=== PATIENT | female | born 1985 | race Caucasian/White ===

== ENCOUNTER 2021-01-11 09:36 | Inpatient (IN) | payer OTHER ==
[2021-01-11] MEDS ORDERED: NALOXONE 0.4 MG/ML 1 ML VIAL IVP STA (09:42)
[2021-01-11 10:15] LABS: Basophils % (A) 0 %; Eosinophils # (A) 0.1 k/uL (0-0.7); Eosinophils % (A) 1 %; HCT 41.1 % (34.0-46.0); HGB 13.9 gm/dL (11.4-16.0); Lymphocytes # (A) 1.8 k/uL (1.0-4.8); Lymphocytes % (A) 18 %; MCH 27.7 pg (25.0-35.0); MCHC 33.8 g/dL (31.0-37.0); Monocytes # (A) 0.4 k/uL (0-1.0); Monocytes % (A) 4 %; Neutrophils # (A) 7.9 k/uL (1.3-7.7); Neutrophils % (A) 77 %; Platelet Count 317 k/uL (150-450); RBC 5.01 m/uL (3.80-5.40); RDW 14.4 % (11.5-15.5); WBC 10.2 k/uL (3.8-10.6)
[2021-01-11 10:15] LABS: Glucose,Whole Blood 121 mg/dL (75-99)
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
[2021-01-11 10:30] LABS: ALT 17 U/L (4-34); AST 30 U/L (14-36); Acetaminophen <10.0 ug/mL; African American GFR (CKD) >90 (>60 ml/min/1.73 sqM); Albumin 4.7 g/dL (3.5-5.0); Alcohol <10 mg/dL; Alkaline Phosphatase 129 U/L (38-126); Anion Gap 14 mmol/L; Blood Urea Nitrogen 14 mg/dL (7-17); Calcium 10.1 mg/dL (8.4-10.2); Carbon Dioxide 23 mmol/L (22-30); Chloride 101 mmol/L (98-107); Creatine Kinase 176 U/L (30-135); Glucose 127 mg/dL (74-99); Lipase 58 U/L (23-300); Non-African American GFR(CKD) >90 (>60 ml/min/1.73 sqM); Potassium 4.3 mmol/L (3.5-5.1); Salicylate <1.0 mg/dL; Sodium 138 mmol/L (137-145); Total Protein 8.2 g/dL (6.3-8.2)
[2021-01-11 12:34] LABS: Amphetamine Screen,Urine Detected (NotDetected); Barbiturate Screen,Urine Not Detected (NotDetected); Benzodiazepines Screen,Urine Not Detected (NotDetected); Cocaine Screen,Urine Detected (NotDetected); Methadone Screen, Urine Detected (NotDetected); Opiate Screen,Urine Detected (NotDetected); Oxycodone Screen, Urine Not Detected (NotDetected); Phencyclidine Screen,Urine Not Detected (NotDetected); Tricyclic Antidepressant,Urine Detected (NotDetected); Urn Cannabinoid Scrn Not Detected (NotDetected)
--- NOTE | 2021-01-11 13:28 | CT ---
EXAMINATION TYPE: CT brain wo con DATE OF EXAM: 01/11/2021 COMPARISON: None HISTORY: 35-year-old female confusion, altered mental status TECHNIQUE: Examination was done in axial plane without intravenous contrast. Coronal and sagittal r econstructions performed. CT DLP: 2192.4 mGycm Automated exposure control for dose reduction was used. FINDINGS: There is no evidence of acute intracranial hemorrhage, acute ischemic changes, mass, mass-effect, or extra-axial fluid collection. There is no effacement of cerebral sulci or basal subarachnoid cister ns. There is no hydrocephalus. There is no midline shift. Joseph-white matter distinction is preserv ed. Partially empty sella noted. Paranasal sinuses and mastoid air cells are pneumatized. Orbits and globes are intact. Incidentally, we note divergent gaze which may be seen with strabismus. IMPRESSION: 1. No acute intracranial abnormality seen. 2. Partially empty sella which is probably incidental. Correlate with patient's symptoms to exclude t he possibility of pseudotumor cerebri.
[2021-01-11] MEDS ORDERED: NALOXONE 0.4 MG/ML 1 ML VIAL IV PRN (13:36)
[2021-01-11] MEDS: SODIUM CHLORIDE 0.9% 1,000 ML IV SCH ×2 (14:53→20:09)
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
[2021-01-11 18:22] LABS: Lactic Acid, Venous 0.9 mmol/L (0.7-2.0)
[2021-01-11 18:23] LABS: HCG,Qualitative Serum Not Detected
[2021-01-11] MEDS ORDERED: LOPERAMIDE 2 MG CAP PO STA (18:38)
[2021-01-11] MEDS ORDERED: LEVOFLOXACIN 500MG-D5W PMX 500 MG in DEXTROSE/WATER 1 100ML.BAG IVPB SCH (20:00)
[2021-01-11] MEDS: cloNIDine HCL 0.1 MG TAB PO SCH (20:09)
[2021-01-11] MEDS: ACETAMINOPHEN TAB 325 MG TAB PO PRN (22:57)
[2021-01-11] MEDS: traZODone HCL 50 MG TAB PO PRN (22:57)
[2021-01-12] MEDS: hydrOXYzine HCL 25 MG TAB PO PRN ×3 (02:43→20:48)
[2021-01-12] MEDS: SODIUM CHLORIDE 0.9% 1,000 ML IV SCH ×3 (04:30→22:56)
--- NOTE | 2021-01-12 09:09 | P.HPIM ---
History of Present Illness This is a pleasant 35 years old female with unknown significant past medical history. Patient is poor historian. Patient can give limited information and with the help of the staff and records. As per ED notes patient was brought to the hospital by a friend instead of going to rehab. And that the patient is awake but not responding to questions. When I saw the patient she was sitting up in bed agitated and anxious, arguing with the staff. Patient she was mumbling more than 50% of her talk, it was low tone, and an understandable by me or the bedside nurse although standing close to her. She looks partially oriented. There is a gap of seconds before she answers most of the time, easily distractible, she knew she is in the hospital but thought that this [facility]. At first episode it is December 2014 and then she gets correct herself to January 2021, she knew with hesitation name of the president. She states that she came to the hospital because she had a corneal with her boyfriend. She is taking pills stated Seroquel 4-5 pills understand all 4 toes of one pill only, she did not answer why she took these medications, then she states that instead of her boyfriend taking her to the rehab he brought her to the hospital Vitals showing tachycardia with heart rate around 110. Her rest of vitals are stable blood pressure 134/70. Temperature is 97.5. Labs show an unremarkable CBC, BMP, liver enzymes. Troponin is negative less than 0.012. Lipase normal at 58. veronica v not detected. Urine drug screen was positive for opiates, methadone, tricyclic antidepressant, amphetamines, methamphetamines and cocaine Salicylate less than 1, acetaminophen less than 10, serum alcohol less than 10 Urine test hCGs not detected. CT of the brain: No acute process. Partially empty sella which is probably incidental. Correlated with the patient's symptoms to exclude the possibility of pseudotumor cerebra EKG shows sinus tachycardia at 1:30 with QTC is [address]-T changes. Mostly related to tachycardia. And emergency room she received naloxone 1 and continued on normal saline at 100 mL per hour Psychiatric has been consulted Suicidal precautions initiated Review of Systems CONSTITUTIONAL: No fever, no malaise, no fatigue. HEENT: No recent visual problems or hearing problems. Denied any sore throat. CARDIOVASCULAR: No orthopnea, PND, no palpitations, no syncope. PULMONARY: No shortness of breath, no cough, no hemoptysis. GASTROINTESTINAL: No diarrhea, no nausea, no vomiting, no abdominal pain. Normoactive bowel sounds. NEUROLOGICAL: No headaches, no weakness, no numbness. HEMATOLOGICAL: Denies any bleeding or petechiae. GENITOURINARY: Denies any burning micturition, frequency, or urgency. MUSCULOSKELETAL/RHEUMATOLOGICAL: Denies any joint pain, swelling, or any muscle pain. ENDOCRINE: Denies any polyuria or polydipsia. Past Medical History Past Medical History: Unable to Obtain History of Any Multi-Drug Resistant Organisms: Unobtainable Past Surgical History: Unable to Obtain Past Psychological History: Unable to Obtain Smoking Status: Unknown if ever smoked Past Alcohol Use History: Unable to Obtain Past Drug Use History: Heroin - Past Family History Mother Additional Family Medical History / Comment(s): unable to obtain Medications and Allergies Home Medications Medication Instructions Recorded Confirmed Type Acetaminophen Tab [Tylenol] 975 mg PO Q6H PRN 01/11/21 01/11/21 History Albuterol Inhaler [Ventolin Hfa 2 puff INHALATION RT-Q6H PRN 01/11/21 01/11/21 History Inhaler] Cyclobenzaprine [Flexeril] 10 mg PO DAILY PRN 01/11/21 01/11/21 History Ibuprofen [Motrin] 600 mg PO TID PRN 01/11/21 01/11/21 History Magnesium Hydroxide [Milk of 2,700 mg PO DAILY PRN 01/11/21 01/11/21 History Magnesia Concentrate] Methadone HCl [Methadone Intensol] 100 mg PO DAILY 01/11/21 01/11/21 History Nicotine Polacrilex [Nicorette] 2 mg BUCCAL Q1H PRN 01/11/21 01/11/21 History QUEtiapine [SEROquel] 100 mg PO HS 01/11/21 01/11/21 History Sertraline [Zoloft] 100 mg PO DAILY 01/11/21 01/11/21 History Topiramate [Topamax] 100 mg PO HS 01/11/21 01/11/21 History hydrOXYzine HCL [Atarax] 50 mg PO QID PRN 01/11/21 01/11/21 History polyethylene glycoL 3350 [Miralax] 17 gm PO DAILY 01/11/21 01/11/21 History traZODone HCL 50 mg PO HS 01/11/21 01/11/21 History Allergies Allergy/AdvReac Type Severity Reaction Status Date / Time amoxicillin Allergy Unknown Verified 01/11/21 11:18 Penicillins Allergy Unknown Verified 01/11/21 11:18 Physical Exam Vitals: Vital Signs Temp Pulse Pulse Resp BP BP Pulse Ox 01/11/21 14:53 98 01/11/21 14:46 97.5 F L 110 H 12 134/70 98 01/11/21 14:00 103 H 16 111/66 97 01/11/21 12:50 108 H 16 110/65 97 01/11/21 12:00 97.8 F 112 H 16 112/72 97 01/11/21 10:29 98.2 F 135 H 15 131/79 96 01/11/21 10:00 16 01/11/21 09:38 98.2 F 139 H 14 109/66 98 Intake and Output 01/11/21 01/11/21 01/11/21 06:59 14:59 22:59 Other: Weight 72.62 kg "Examination done in the presents of the bedside nurse Faye" -GENERAL: The patient is alert and partially oriented to time, place and person, she looks uncomfortable. Well developed, well nourished. HEENT: Pupils are round and equally reacting to light. EOMI. No scleral icterus. No conjunctival pallor. Normocephalic, atraumatic. No pharyngeal erythema. No thyromegaly. CARDIOVASCULAR: S1 and S2 present. No murmurs, rubs, or gallops. PULMONARY: Chest is clear to auscultation, no wheezing or crackles. ABDOMEN: Soft, nontender, nondistended, normoactive bowel sounds. No palpable organomegaly. MUSCULOSKELETAL: No joint swelling or deformity. -EXTREMITIES: No cyanosis, clubbing, or pedal edema. Right hand is swollen with few puncture sites with no discharge on the dorsum of the right hand, with some pinkish areas. No weakness NEUROLOGICAL: Gross neurological examination did not reveal any focal deficits. SKIN: No rashes. No petechiae Psychiatrist: Anxious, rotated and agitated, fights verbally with staff matt quently, easily distractible. Mumbles in most of her talks. Able to follow simple commands. Results CBC & Chem 7: 01/11/21 09:53 01/11/21 09:53 Labs: Abnormal Lab Results - Last 24 Hours (Table) 01/11/21 01/11/21 01/11/21 Range/Units 09:53 09:53 10:04 Neutrophils # 7.9 H (1.3-7.7) k/uL Glucose 127 H (74-99) mg/dL POC Glucose (mg/dL) 121 H (75-99) mg/dL Alkaline Phosphatase 129 H (38-126) U/L Creatine Kinase 176 H (30-135) U/L Urine Opiates Screen (NotDetected) Urine Methadone Screen (NotDetected) U Tricyclic Antidepress (NotDetected) Ur Amphetamines Screen (NotDetected) U Methamphetamines Scrn (NotDetected) Urine Cocaine Screen (NotDetected) 01/11/21 Range/Units 12:01 Neutrophils # (1.3-7.7) k/uL Glucose (74-99) mg/dL POC Glucose (mg/dL) (75-99) mg/dL Alkaline Phosphatase (38-126) U/L Creatine Kinase (30-135) U/L Urine Opiates Screen Detected H (NotDetected) Urine Methadone Screen Detected H (NotDetected) U Tricyclic Antidepress Detected H (NotDetected) Ur Amphetamines Screen Detected H (NotDetected) U Methamphetamines Scrn Detected H (NotDetected) Urine Cocaine Screen Detected H (NotDetected) Assessment and Plan Assessment: Metabolic versus toxic encephalopathy Substance abuse including opiates, methadone, tricyclic antidepressant, amphetamines, methamphetamines and cocaine possible psychosis and possibly secondary to above right hand swelling and area of pink coloration , r/o cellulitis Empty sella, rule out pseudotumor cerebri hyperglycemia rule out diabetes mellitus Plan: This is a pleasant 35 years old female who presents with altered mental status and substance abuse. Continue with the neuro check. Psychiatric been consulted. We'll ask for sitter at bedside for safety. Patient cannot leave AMA till cleared by psychiatrist , discussed with staff she cannot leave AMA, sitter at bedside, and the patient is she will try to leave then she has to be potentiated, , However the bed side nurse told me later that she follow up with the staff will try to do blood culture for her, and she was ripping off tubes , also patient will probably not agree and fight with other staff eg if ultrasound or other bed side test is ordered. based upon my evaluation pt looks does not have capacity to make medical decision and she is confused , pt will need close monitoring and neuro check start pt on levaquin , infectious disease consult. neurology consult for ams and abnormal ct of head We will check pro calcitonin, TSH, hemoglobin A1c in view of high glucose Labs and medication were reviewed.. Continue same treatment. Continue with symptomatic treatment. Resume home medication. Monitor lytes and vitals. DVT and GI prophylaxis. Further recommendations depends on the clinical course of the patient DVT prophylaxis: Subcutaneous heparin GI Prophylaxis: Pepcid Prognosis is guarded
[2021-01-12] MEDS: cloNIDine HCL 0.1 MG TAB PO SCH ×3 (09:13→20:10)
[2021-01-12] MEDS ORDERED: NICOTINE 21MG/24HR PATCH TRANSDERM STA (09:43)
[2021-01-12] MEDS: METHADONE 10 MG TAB PO SCH (10:36)
[2021-01-12] MEDS: ACETAMINOPHEN TAB 325 MG TAB PO PRN ×2 (12:21→20:09)
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
--- NOTE | 2021-01-12 15:15 | CONS ---
CONSULTATION DATE OF SERVICE: 01/12/2021 REASON FOR CONSULTATION: Right hand cellulitis. HISTORY OF PRESENT ILLNESS: The patient is a 35-year-old female with a past medical history significant for IV drug use in this patient attempted to take her to the rehab facility as the patient apparently took unknown quantity of Seroquel that she had in her possession, possibly Zoloft and Topamax. The patient has been brought to the hospital for mental status changes and drug overdose. The patient also noticed to have right hand dorsum swelling and redness. The patient admitted to injecting into the right hand dorsum area on Friday that is 3 days before presentation to the hospital. The patient mentioned she did miss the vein and there was slight bleeding after which she noted the area slightly getting more swollen and red. The patient did have mild dull aching pain 2 to 3/10, no radiation. The patient on presentation to the hospital was afebrile. She did have normal white count. Kidney functions were normal. Urine was positive for opiates and methadone, tricyclics, amphetamines, and cocaine. Sierra PCR was negative. Urine for HCG was negative. The patient did have blood cultures drawn which are currently pending. She is currently on Levaquin because of her PENICILLIN and AMOXICILLIN allergy. Infectious Disease was consulted for further management of antibiotic therapy. REVIEW OF SYSTEMS: Positive points have been mentioned in HPI. Rest of systems are negative her. PAST MEDICAL HISTORY: Significant for IV drug use. Denies any history of any abscess or infections. PAST SURGICAL HISTORY: No major surgery. SOCIAL HISTORY: Positive for smoking, IV drug use and drinking. FAMILY HISTORY: No pertinent findings notices. ALLERGIES: She is allergic to PENICILLIN and AMOXICILLIN with a rash. No history of anaphylaxis. MEDICATIONS: Currently, the patient is on Tylenol, Catapres, Atarax, Levaquin, Imodium, Narcan, nicotine patch, Zofran, Desyrel. PHYSICAL EXAMINATION: Her blood pressure was 109/71 with a pulse of 63, temperature is 97.9. She is 96% on room air. General description is a middle-aged female up in the room in no distress. No tachypnea or accessory muscle of respiration use. HEENT EXAMINATION: No pallor or scleral icterus. Oral mucous membrane is dry. NECK: Trachea central. No thyromegaly. LUNGS: Unlabored breathing, clear to auscultation anteriorly with crackles. HEART: S1, S2. Regular rate and rhythm. ABDOMEN: Soft, no tenderness. EXTREMITIES: No edema of feet. EXAMINATION OF RIGHT HAND: Dorsum did have minimal swelling at the site of possible IV drug use. No evidence of any significant redness, no or any drainage. NEUROLOGICAL: Patient is awake, alert, and oriented x3. Mood and affect normal. LABS: Hemoglobin is 13.9, white count 10.2. BUN of 14, creatinine 0.73. Electrolytes have been normal. Blood culture so far negative. DIAGNOSTIC IMPRESSION: 1. Patient with right hand dorsum cellulitis from IV drug use. Clinically no evidence of any abscess and apparently some of the redness has improved with Levaquin, possibly dealing with MSSA or streptococcal infection. 2. Patient with AMOXICILLIN and PENICILLIN allergy that will limit the number of antibiotics safe to use, but no history of anaphylaxis. PLAN: 1. Discontinue Levaquin. 2. Start the patient on Keflex 500 mg p.o. q.8 hours and if the patient continues to improve she will be able to finish therapy with one-week course of oral Keflex. 3. If any worsening swelling, redness is noticed at the affected site, culture will be obtained. Antibiotic will be adjusted further. Thank you for this consultation. Will follow this patient along with you. MMODL / IJN: [id number] /
[2021-01-12] MEDS: CEPHALEXIN 500 MG CAP PO SCH ×2 (15:26→20:10)
--- NOTE | 2021-01-12 18:02 | P.DS ---
Providers Date of admission: 01/11/21 13:36 Expected date of discharge: 01/12/21 Attending physician: Nas Doshi MD Consults: 01/11/21 13:38 Consult Physician Routine Consulting Provider: Junior Maldonado Consult Reason/Comments: Depression, suicide attempt, drug overdose Do you want consulting provider notified?: Already Contacted 01/11/21 15:46 Consult Physician Urgent Consulting Provider: Capo Mora Consult Reason/Comments: ams, r/u pseudotumor cerebri Do you want consulting provider notified?: Yes 01/11/21 18:40 Consult Physician Urgent Consulting Provider: Peyman Florian Consult Reason/Comments: rt hand swelling/infection Do you want consulting provider notified?: Yes Primary care physician: Stated None Hospital Course: 35 years old female with unknown significant past medical history. Patient is poor historian. Patient can give limited information and with the help of the staff and records. As per ED notes patient was brought to the hospital by a friend instead of going to rehab. And that the patient is awake but not responding to questions. When I saw the patient she was sitting up in bed agitated and anxious, arguing with the staff. Patient she was mumbling more than 50% of her talk, it was low tone, and an understandable by me or the bedside nurse although standing close to her. She looks partially oriented. There is a gap of seconds before she answers most of the time, easily distractible, she knew she is in the hospital but thought that this [place]. At first episode it is December 2014 and then she gets correct herself to January 2021, she knew with hesitation name of the president. She states that she came to the hospital because she had a corneal with her boyfriend. She is taking pills stated Seroquel 4-5 pills understand all 4 toes of one pill only, she did not answer why she took these medications, then she states that instead of her boyfriend taking her to the rehab he brought her to the hospital Vitals showing tachycardia with heart rate around 110. Her rest of vitals are stable blood pressure 134/70. Temperature is 97.5. Labs show an unremarkable CBC, BMP, liver enzymes. Troponin is negative less th an 0.012. Lipase normal at 58. veronica v not detected. Urine drug screen was positive for opiates, methadone, tricyclic antidepressant, amphetamines, methamphetamines and cocaine Salicylate less than 1, acetaminophen less than 10, serum alcohol less than 10 Urine test hCGs not detected. CT of the brain: No acute process. Partially empty sella which is probably incidental. Correlated with the patient's symptoms to exclude the possibility of pseudotumor cerebra EKG shows sinus tachycardia at 1:30 with QTC is [address]-T changes. Mostly related to tachycardia. And emergency room she received naloxone 1 and continued on normal saline at 100 mL per hour Psychiatric has been consulted Suicidal precautions initiated Patient remained stable while in the hospital; patient was evaluated by psychiatry and was recommended inpatient psych treatment; patient is medically stable and is being transferred to mental health unit Patient Condition at Discharge: Fair Plan - Discharge Summary New Discharge Prescriptions: New cloNIDine HCL [Catapres] 0.1 mg PO TID #90 tab Cephalexin [Keflex] 500 mg PO TID #30 cap FLUoxetine HCL [PROzac] 20 mg PO DAILY #30 cap Continue traZODone HCL 50 mg PO HS polyethylene glycoL 3350 [Miralax] 17 gm PO DAILY Topiramate [Topamax] 100 mg PO HS Sertraline [Zoloft] 100 mg PO DAILY QUEtiapine [SEROquel] 100 mg PO HS Nicotine Polacrilex [Nicorette] 2 mg BUCCAL Q1H PRN PRN Reason: Smoking Cessation Magnesium Hydroxide [Milk of Magnesia Concentrate] 2,700 mg PO DAILY PRN PRN Reason: Constipation Albuterol Inhaler [Ventolin Hfa Inhaler] 2 puff INHALATION RT-Q6H PRN PRN Reason: Shortness Of Breath Acetaminophen Tab [Tylenol] 975 mg PO Q6H PRN PRN Reason: Pain hydrOXYzine HCL [Atarax] 50 mg PO QID PRN PRN Reason: Anxiety Ibuprofen [Motrin] 600 mg PO TID PRN PRN Reason: Pain Cyclobenzaprine [Flexeril] 10 mg PO DAILY PRN PRN Reason: Muscle Spasm Methadone HCl [Methadone Intensol] 100 mg PO DAILY Discharge Medication List Acetaminophen Tab [Tylenol] 975 mg PO Q6H PRN 01/11/21 [History] Albuterol Inhaler [Ventolin Hfa Inhaler] 2 puff INHALATION RT-Q6H PRN 01/11/21 [History] Cyclobenzaprine [Flexeril] 10 mg PO DAILY PRN 01/11/21 [History] Ibuprofen [Motrin] 600 mg PO TID PRN 01/11/21 [History] Magnesium Hydroxide [Milk of Magnesia Concentrate] 2,700 mg PO DAILY PRN 01/11/21 [History] Methadone HCl [Methadone Intensol] 100 mg PO DAILY 01/11/21 [History] Nicotine Polacrilex [Nicorette] 2 mg BUCCAL Q1H PRN 01/11/21 [History] QUEtiapine [SEROquel] 100 mg PO HS 01/11/21 [History] Sertraline [Zoloft] 100 mg PO DAILY 01/11/21 [History] Topiramate [Topamax] 100 mg PO HS 01/11/21 [History] hydrOXYzine HCL [Atarax] 50 mg PO QID PRN 01/11/21 [History] polyethylene glycoL 3350 [Miralax] 17 gm PO DAILY 01/11/21 [History] traZODone HCL 50 mg PO HS 01/11/21 [History] Cephalexin [Keflex] 500 mg PO TID #30 cap 01/12/21 [Rx] FLUoxetine HCL [PROzac] 20 mg PO DAILY #30 cap 01/12/21 [Rx] cloNIDine HCL [Catapres] 0.1 mg PO TID #90 tab 01/12/21 [Rx] Follow up Appointment(s)/Referral(s): None,Stated [Primary Care Provider] - 1-2 days Patient Instructions/Handouts: Adult Overdose (ED) Discharge Disposition: TRANSFER TO PSYCH HOSP/UNIT
[2021-01-12] MEDS: OLANZapine 2.5 MG TAB PO SCH (20:10)
[2021-01-12] MEDS: traZODone HCL 50 MG TAB PO PRN (20:10)
[2021-01-13] MEDS: ACETAMINOPHEN TAB 325 MG TAB PO PRN ×3 (01:52→20:00)
[2021-01-13] MEDS: SODIUM CHLORIDE 0.9% 1,000 ML IV SCH ×3 (04:49→22:42)
[2021-01-13] MEDS: METHADONE 10 MG TAB PO SCH (08:00)
[2021-01-13] MEDS: cloNIDine HCL 0.1 MG TAB PO SCH ×3 (08:01→20:00)
[2021-01-13] MEDS: CEPHALEXIN 500 MG CAP PO SCH ×3 (08:01→20:00)
[2021-01-13] MEDS: FLUoxetine HCL 20 MG CAP PO SCH (08:01)
[2021-01-13] MEDS: hydrOXYzine HCL 25 MG TAB PO PRN ×3 (08:09→20:00)
[2021-01-13] MEDS ORDERED: NICOTINE 21MG/24HR PATCH TRANSDERM SCH (09:00)
[2021-01-13] MEDS: OLANZapine 2.5 MG TAB PO SCH ×2 (10:27→20:00)
[2021-01-13] MEDS: ONDANSETRON 4 MG/2 ML VIAL IVP PRN ×2 (10:27→20:04)
[2021-01-13] MEDS: LOPERAMIDE 2 MG CAP PO PRN (10:32)
[2021-01-13] MEDS: NICOTINE POLACRILEX 2 MG GUM BUCCAL PRN ×3 (12:44→19:18)
--- NOTE | 2021-01-13 17:26 | P.PN ---
Subjective Progress Note Date: 01/13/21 35 years old female with unknown significant past medical history. Patient is poor historian. Patient can give limited information and with the help of the staff and records. As per ED notes patient was brought to the hospital by a friend instead of going to rehab. And that the patient is awake but not responding to questions. When I saw the patient she was sitting up in bed agitated and anxious, arguing with the staff. Patient she was mumbling more than 50% of her talk, it was low tone, and an understandable by me or the bedside nurse although standing close to her. She looks partially oriented. There is a gap of seconds before she answers most of the time, easily distractible, she knew she is in the hospital but thought that this [place]. At first episode it is December 2014 and then she gets correct herself to January 2021, she knew with hesitation name of the president. She states that she came to the hospital because she had a corneal with her boyfriend. She is taking pills stated Seroquel 4-5 pills understand all 4 toes of one pill only, she did not answer why she took these medications, then she states that instead of her boyfriend taking her to the rehab he brought her to the hospital 01/13/2021 Patient is seen and evaluated in room at bedside; no specific complaints; vital signs are reviewed and are stable Await arrangements to discharge patient to mental health unit; patient is clinically stable for discharge when arrangements are made Objective - Vital Signs Vital signs: Vital Signs Temp 98.7 F 01/12/21 23:32 Pulse 69 01/13/21 08:00 Resp 18 01/13/21 08:00 BP 111/62 01/13/21 08:00 Pulse Ox 96 01/13/21 08:00 Intake & Output 01/12/21 01/13/21 01/13/21 18:59 06:59 18:59 Intake Total 1790 240 Output Total 250 1000 Balance 1540 -1000 240 Weight 72 kg Intake: Intake, IV Titration 1040 Amount Sodium Chloride 0.9% 1, 1040 000 ml @ 130 mls/hr IV . Q7H42M [facility] Rx#:[id number] Oral 750 240 Output: Urine 250 1000 Uretheral (Gu) 250 Other: Voiding Method Indwelling Catheter Toilet # Voids 2 - Exam - Constitutional General appearance: Present: average body habitus, cooperative, no acute distress - EENT Eyes: Present: anicteric sclerae, EOMI, PERRLA, normal appearance ENT: Present: hearing grossly normal, normal oropharynx Ears: bilateral: normal - Neck Neck: Present: normal ROM. Absent: lymphadenopathy, rigidity, thyromegaly Carotids: negative: bruit present Thyroid: bilateral: normal size, negative: enlarged, nodule - Respiratory Respiratory: bilateral: CTA, negative: rales, rhonchi, wheezing - Cardiovascular Rhythm: regular Heart sounds: normal: S1, S2 Abnormal Heart Sounds: Absent: systolic murmur, diastolic murmur - Gastrointestinal General gastrointestinal: Present: normal bowel sounds, soft. Absent: distended, organomegaly, tenderness - Genitourinary Genitourinary Comment(s): deferred - Integumentary Integumentary: Present: normal turgor. Absent: jaundiced, rash, ulcer - Neurologic Neurologic: Present: CNII-XII intact. Absent: focal deficits - Musculoskeletal Musculoskeletal: Present: gait normal, strength equal bilaterally - Psychiatric Psychiatric: Present: A&O x's 3, appropriate affect, intact judgment & insight - Labs CBC & Chem 7: 01/11/21 09:53 01/11/21 09:53 Labs: Microbiology - Last 24 Hours (Table) 01/12/21 07:46 Blood Culture - Preliminary Blood No Growth after 24 hours Assessment and Plan Assessment: Metabolic versus toxic encephalopathy Substance abuse including opiates, methadone, tricyclic antidepressant, amphetamines, methamphetamines and cocaine possible psychosis and possibly secondary to above right hand swelling and area of pink coloration , r/o cellulitis Empty sella, rule out pseudotumor cerebri hyperglycemia rule out diabetes mellitus Plan: This is a pleasant 35 years old female who presents with altered mental status a nd substance abuse. Continue with the neuro check. Psychiatric been consulted. We'll ask for sitter at bedside for safety. Patient cannot leave AMA till cleared by psychiatrist , discussed with staff she cannot leave AMA, sitter at bedside, and the patient is she will try to leave then she has to be potentiated, , However the bed side nurse told me later that she follow up with the staff will try to do blood culture for her, and she was ripping off tubes , also patient will probably not agree and fight with other staff eg if ultrasound or other bed side test is ordered. based upon my evaluation pt looks does not have capacity to make medical decision and she is confused , pt will need close monitoring and neuro check start pt on levaquin , infectious disease consult. neurology consult for ams and abnormal ct of head We will check pro calcitonin, TSH, hemoglobin A1c in view of high glucose Labs and medication were reviewed.. Continue same treatment. Continue with symptomatic treatment. Resume home medication. Monitor lytes and vitals. DVT and GI prophylaxis. Further recommendations depends on the clinical course of the patient DVT prophylaxis: Subcutaneous heparin GI Prophylaxis: Pepcid Prognosis is guarded
[2021-01-13] MEDS: traZODone HCL 50 MG TAB PO PRN (20:00)
[2021-01-14] MEDS: FLUoxetine HCL 20 MG CAP PO SCH (09:15)
[2021-01-14] MEDS: cloNIDine HCL 0.1 MG TAB PO SCH ×3 (09:15→20:25)
[2021-01-14] MEDS: CEPHALEXIN 500 MG CAP PO SCH ×3 (09:15→20:25)
[2021-01-14] MEDS: OLANZapine 2.5 MG TAB PO SCH ×2 (09:15→20:24)
[2021-01-14] MEDS: METHADONE 10 MG TAB PO SCH (09:15)
[2021-01-14] MEDS: polyethylene glycoL 3350 17 GM POWD.PACK PO PRN ×2 (09:25→09:26)
[2021-01-14] MEDS: NICOTINE POLACRILEX 2 MG GUM BUCCAL PRN ×3 (10:23→18:46)
[2021-01-14] MEDS: ONDANSETRON 4 MG/2 ML VIAL IVP PRN (10:26)
--- NOTE | 2021-01-14 17:31 | P.PN ---
Subjective Progress Note Date: 01/14/21 Principal diagnosis: Metabolic/toxic encephalopathy Substance abuse 35 years old female with unknown significant past medical history. Patient is poor historian. Patient can give limited information and with the help of the staff and records. As per ED notes patient was brought to the hospital by a friend instead of going to rehab. And that the patient is awake but not resp onding to questions. When I saw the patient she was sitting up in bed agitated and anxious, arguing with the staff. Patient she was mumbling more than 50% of her talk, it was low tone, and an understandable by me or the bedside nurse although standing close to her. She looks partially oriented. There is a gap of seconds before she answers most of the time, easily distractible, she knew she is in the hospital but thought that this [place]. At first episode it is December 2014 and then she gets correct herself to January 2021, she knew with hesitation name of the president. She states that she came to the hospital because she had a corneal with her boyfriend. She is taking pills stated Se roquel 4-5 pills understand all 4 toes of one pill only, she did not answer why she took these medications, then she states that instead of her boyfriend taking her to the rehab he brought her to the hospital 01/13/2021 Patient is seen and evaluated in room at bedside; no specific complaints; vital signs are reviewed and are stable Await arrangements to discharge patient to mental health unit; patient is clinically stable for discharge when arrangements are made 01/14/2021; Patient is evaluated resting comfortably in bed; sitter at bedside; patient hasn't required multiple times if she could be discharged home; petition is done for admission to mental health unit Patient has been evaluated by psychiatry and is recommended further evaluation and patient; await discharge arrangements Patient is medically stable for discharge once arrangements are made Objective - Vital Signs Vital signs: Vital Signs Temp 98.4 F 01/13/21 19:30 Pulse 79 01/14/21 08:30 Resp 18 01/14/21 08:30 BP 109/57 01/14/21 08:30 Pulse Ox 99 01/14/21 08:30 Intake & Output 01/13/21 01/14/21 01/14/21 18:59 06:59 18:59 Intake Total 720 Balance 720 Weight 71.3 kg Intake: Oral 720 Other: Voiding Method Toilet # Voids 1 - Exam - Constitutional General appearance: Present: average body habitus, cooperative, no acute distress - EENT Eyes: Present: anicteric sclerae, EOMI, PERRLA, normal appearance ENT: Present: hearing grossly normal, normal oropharynx Ears: bilateral: normal - Neck Neck: Present: normal ROM. Absent: lymphadenopathy, rigidity, thyromegaly Carotids: negative: bruit present Thyroid: bilateral: normal size, negative: enlarged, nodule - Respiratory Respiratory: bilateral: CTA, negative: rales, rhonchi, wheezing - Cardiovascular Rhythm: regular Heart sounds: normal: S1, S2 Abnormal Heart Sounds: Absent: systolic murmur, diastolic murmur - Gastrointestinal General gastrointestinal: Present: normal bowel sounds, soft. Absent: distended, organomegaly, tenderness - Genitourinary Genitourinary Comment(s): deferred - Integumentary Integumentary: Present: normal turgor. Absent: jaundiced, rash, ulcer - Neurologic Neurologic: Present: CNII-XII intact. Absent: focal deficits - Musculoskeletal Musculoskeletal: Present: gait normal, strength equal bilaterally - Psychiatric Psychiatric: Present: A&O x's 3, appropriate affect, intact judgment & insight - Labs CBC & Chem 7: 01/11/21 09:53 01/11/21 09:53 Labs: Microbiology - Last 24 Hours (Table) 01/12/21 07:46 Blood Culture - Preliminary Blood No Growth after 48 hours Assessment and Plan Assessment: Metabolic versus toxic encephalopathy Substance abuse including opiates, methadone, tricyclic antidepressant, amphetamines, methamphetamines and cocaine possible psychosis and possibly secondary to above right hand swelling and area of pink coloration , r/o cellulitis Empty sella, rule out pseudotumor cerebri hyperglycemia rule out diabetes mellitus Plan: This is a pleasant 35 years old female who presents with altered mental status and substance abuse. Continue with the neuro check. Psychiatric been consulted. We'll ask for sitter at bedside for safety. Patient cannot leave AMA till cleared by psychiatrist , discussed with staff she cannot leave AMA, sitter at bedside, and the patient is she will try to leave then she has to be potentiated, , However the bed side nurse told me later that she follow up with the staff will try to do blood culture for her, and she was ripping off tubes , also patient will probably not agree and fight with other staff eg if ultrasound or other bed side test is ordered. based upon my evaluation pt looks does not have capacity to make medical decision and she is confused , pt will need close monitoring and neuro check start pt on levaquin , infectious disease consult. neurology consult for ams and abnormal ct of head We will check pro calcitonin, TSH, hemoglobin A1c in view of high glucose Labs and medication were reviewed.. Continue same treatment. Continue with symptomatic treatment. Resume home medication. Monitor lytes and vitals. DVT and GI prophylaxis. Further recommendations depends on the clinical course of the patient DVT prophylaxis: Subcutaneous heparin GI Prophylaxis: Pepcid Prognosis is guarded
[2021-01-14] MEDS: traZODone HCL 50 MG TAB PO PRN (20:25)
[2021-01-14] MEDS: ACETAMINOPHEN TAB 325 MG TAB PO PRN (20:25)
[2021-01-14] MEDS: hydrOXYzine HCL 25 MG TAB PO PRN (20:25)
--- NOTE | 2021-01-14 22:55 | PN ---
PROGRESS NOTE DATE OF SERVICE: 01/14/2021 REASON FOR FOLLOWUP: Right hand IV drug site cellulitis. INTERVAL HISTORY: The patient is currently afebrile. Patient is breathing comfortably. Patient denies having any chest pain, shortness of breath or cough. No pain or swelling to the right hand dorsum area. PHYSICAL EXAMINATION: Blood pressure 102/63 with a pulse of 73, temperature 98.4. She is 100% on room air. General description is a middle-aged female up in the bed in no distress. Respiratory system: Unlabored breathing, clear to auscultation anteriorly. Heart S1, S2. Regular rate and rhythm. Abdomen soft, no tenderness. The right hand dorsum area with no significant swelling, redness or any drainage. DIAGNOSTIC IMPRESSION AND PLAN: Patient with right hand dorsum cellulitis from IV drug use. No evidence of any abscess. Mild cellulitis. Currently on oral Keflex to continue for another 4-5 days to finish course of antibiotic. Continue supportive care. MMODL / IJN: [id number] /
[2021-01-15] MEDS: FLUoxetine HCL 20 MG CAP PO SCH (08:35)
[2021-01-15] MEDS: OLANZapine 2.5 MG TAB PO SCH (08:35)
[2021-01-15] MEDS: LOPERAMIDE 2 MG CAP PO PRN (08:35)
[2021-01-15] MEDS: cloNIDine HCL 0.1 MG TAB PO SCH (08:35)
[2021-01-15] MEDS: CEPHALEXIN 500 MG CAP PO SCH ×3 (08:35→21:14)
[2021-01-15] MEDS: polyethylene glycoL 3350 17 GM POWD.PACK PO PRN (08:36)
[2021-01-15] MEDS: NICOTINE POLACRILEX 2 MG GUM BUCCAL PRN ×7 (08:42→21:14)
[2021-01-15] MEDS: METHADONE 10 MG TAB PO SCH (10:53)
[2021-01-15] MEDS ORDERED: LORazepam 1 MG TAB PO STA ×2 (11:17→15:16)
[2021-01-15] MEDS: ACETAMINOPHEN TAB 325 MG TAB PO PRN (11:59)
[2021-01-15 13:39] VITALS: BP 109/70; PULSE 43; RESP 18; TEMP 97.8
[2021-01-15] MEDS: hydrOXYzine HCL 25 MG TAB PO PRN ×3 (14:05→21:17)
--- NOTE | 2021-01-15 17:08 | P.DS ---
Providers Date of admission: 01/11/21 13:36 Attending physician: Nas Doshi MD Consults: 01/11/21 13:38 Consult Physician Routine Consulting Provider: Junior Maldonado Consult Reason/Comments: Depression, suicide attempt, drug overdose Do you want consulting provider notified?: Already Contacted 01/11/21 15:46 Consult Physician Urgent Consulting Provider: Capo Mora Consult Reason/Comments: ams, r/u pseudotumor cerebri Do you want consulting provider notified?: Yes 01/11/21 18:40 Consult Physician Urgent Consulting Provider: Peyman Florian Consult Reason/Comments: rt hand swelling/infection Do you want consulting provider notified?: Yes Primary care physician: Stated None Hospital Course: 35 years old female with unknown significant past medical history. Patient is poor historian. Patient can give limited information and with the help of the staff and records. As per ED notes patient was brought to the hospital by a friend instead of going to rehab. And that the patient is awake but not responding to questions. When I saw the patient she was sitting up in bed agitated and anxious, arguing with the staff. Patient she was mumbling more than 50% of her talk, it was low tone, and an understandable by me or the bedside nurse although standing close to her. She looks partially oriented. There is a gap of seconds before she answers most of the time, easily distractible, she knew she is in the hospital but thought that this [place]. At first episode it is December 2014 and then she gets correct herself to January 2021, she knew with hesitation name of the president. She states that she came to the hospital because she had a corneal with her boyfriend. She is taking pills stated Seroquel 4-5 pills understand all 4 toes of one pill only, she did not answer why she took these medications, then she states that instead of her boyfriend taking her to the rehab he brought her to the hospital 01/13/2021 Patient is seen and evaluated in room at bedside; no specific complaints; vital signs are reviewed and are stable Await arrangements to discharge patient to mental health unit; patient is clinically stable for discharge when arrangements are made 01/14/2021; Patient is evaluated resting comfortably in bed; sitter at bedside; patient hasn't required multiple times if she could be discharged home; petition is done for admission to mental health unit Patient has been evaluated by psychiatry and is recommended further evaluation and patient; await discharge arrangements Patient is medically stable for discharge once arrangements are made 01/15/2021 Patient is medically doing well will be discharged to psychiatric facility today. PHYSICAL EXAMINATION: GENERAL: The patient is alert and oriented x3, not in any acute distress. Well developed, well nourished. HEENT: Pupils are round and equally reacting to light. EOMI. No scleral icterus. No conjunctival pallor. Normocephalic, atraumatic. No pharyngeal erythema. No thyromegaly. CARDIOVASCULAR: S1 and S2 present. No murmurs, rubs, or gallops. PULMONARY: Chest is clear to auscultation, no wheezing or crackles. ABDOMEN: Soft, nontender, nondistended, normoactive bowel sounds. No palpable organomegaly. MUSCULOSKELETAL: No joint swelling or deformity. EXTREMITIES: No cyanosis, clubbing, or pedal edema. NEUROLOGICAL: Gross neurological examination did not reveal any focal deficits. SKIN: No rashes. Assessment and Plan Assessment: Toxic encephalopathy secondary to overuse of drugs. Patient attempted suicide. Substance abuse including opiates, methadone, tricyclic antidepressant, amphetamines, methamphetamines and cocaine Acute psychosis Lightest of the right hand in discharged on Keflex Cephalalgia, resolved etiology is not clear. hyperglycemia rule out diabetes mellitus Patient Condition at Discharge: Fair Plan - Discharge Summary New Discharge Prescriptions: New Cephalexin [Keflex] 500 mg PO TID #30 cap FLUoxetine HCL [PROzac] 20 mg PO DAILY #30 cap Continue traZODone HCL 50 mg PO HS polyethylene glycoL 3350 [Miralax] 17 gm PO DAILY Topiramate [Topamax] 100 mg PO HS Sertraline [Zoloft] 100 mg PO DAILY QUEtiapine [SEROquel] 100 mg PO HS Nicotine Polacrilex [Nicorette] 2 mg BUCCAL Q1H PRN PRN Reason: Smoking Cessation Magnesium Hydroxide [Milk of Magnesia Concentrate] 2,700 mg PO DAILY PRN PRN Reason: Constipation Albuterol Inhaler [Ventolin Hfa Inhaler] 2 puff INHALATION RT-Q6H PRN PRN Reason: Shortness Of Breath Acetaminophen Tab [Tylenol] 975 mg PO Q6H PRN PRN Reason: Pain hydrOXYzine HCL [Atarax] 50 mg PO QID PRN PRN Reason: Anxiety Ibuprofen [Motrin] 600 mg PO TID PRN PRN Reason: Pain Cyclobenzaprine [Flexeril] 10 mg PO DAILY PRN PRN Reason: Muscle Spasm Methadone HCl [Methadone Intensol] 100 mg PO DAILY Discharge Medication List Acetaminophen Tab [Tylenol] 975 mg PO Q6H PRN 01/11/21 [History] Albuterol Inhaler [Ventolin Hfa Inhaler] 2 puff INHALATION RT-Q6H PRN 01/11/21 [History] Cyclobenzaprine [Flexeril] 10 mg PO DAILY PRN 01/11/21 [History] Ibuprofen [Motrin] 600 mg PO TID PRN 01/11/21 [History] Magnesium Hydroxide [Milk of Magnesia Concentrate] 2,700 mg PO DAILY PRN 01/11/21 [History] Methadone HCl [Methadone Intensol] 100 mg PO DAILY 01/11/21 [History] Nicotine Polacrilex [Nicorette] 2 mg BUCCAL Q1H PRN 01/11/21 [History] QUEtiapine [SEROquel] 100 mg PO HS 01/11/21 [History] Sertraline [Zoloft] 100 mg PO DAILY 01/11/21 [History] Topiramate [Topamax] 100 mg PO HS 01/11/21 [History] hydrOXYzine HCL [Atarax] 50 mg PO QID PRN 01/11/21 [History] polyethylene glycoL 3350 [Miralax] 17 gm PO DAILY 01/11/21 [History] traZODone HCL 50 mg PO HS 01/11/21 [History] Cephalexin [Keflex] 500 mg PO TID #30 cap 01/12/21 [Rx] FLUoxetine HCL [PROzac] 20 mg PO DAILY #30 cap 01/12/21 [Rx] Follow up Appointment(s)/Referral(s): None,Stated [Primary Care Provider] - 1-2 days Patient Instructions/Handouts: Depression (DC), Help Prevent Suicide (ED), Polysubstance Abuse (ED), Adult Overdose (ED) Discharge Disposition: TRANSFER TO PSYCH HOSP/UNIT
--- NOTE | 2021-01-15 18:45 | PN ---
PROGRESS NOTE DATE OF SERVICE: 01/15/2021 REASON FOR FOLLOWUP: Right hand IV drug site cellulitis. INTERVAL HISTORY: The patient is currently afebrile. The patient is feeling better. Breathing comfortably. Denies having any chest pain. No shortness of breath or cough. No abdominal pain. No pain to the right hand dorsum area. PHYSICAL EXAMINATION: Blood pressure 109/70 with a pulse of 43, temperature 97.8. She is 98% on room air. General description is a middle-aged female up in the bed in no distress. Respiratory system: Unlabored breathing, clear to auscultation anteriorly. Heart S1, S2. Regular rate and rhythm. Abdomen soft, no tenderness. The right hand dorsum did have small area of cellulitis. No fluctuation induration or any drainage. DIAGNOSTIC IMPRESSION AND PLAN: Patient with right hand IV drug use site, minimal cellulitis. Patient is currently on oral Keflex to continue for about a week to finish a course of therapy and continue supportive care. MMODL / IJN: [id number] /
[2021-01-15] MEDS: traZODone HCL 50 MG TAB PO PRN (21:16)
== END 2021-01-15 21:19 | DRG 917 ==
LOC: EC 09:36 → 3SCARD 13:36
PROVIDERS: ADMIT Internal Medicine; ATTEND Internal Medicine
DX: T43.592A Poisoning by other antipsychotics and neuroleptics, intentional self-harm, initial encounter (principal); G92 Toxic encephalopathy; L03.113 Cellulitis of right upper limb; F23 Brief psychotic disorder; F15.10 Other stimulant abuse, uncomplicated; F11.10 Opioid abuse, uncomplicated; F14.10 Cocaine abuse, uncomplicated; Z20.822 Contact with and (suspected) exposure to COVID-19; F32.9 Major depressive disorder, single episode, unspecified; F10.10 Alcohol abuse, uncomplicated; R00.0 Tachycardia, unspecified; M79.89 Other specified soft tissue disorders; R73.9 Hyperglycemia, unspecified; F41.9 Anxiety disorder, unspecified; R51.9 Headache, unspecified; F17.200 Nicotine dependence, unspecified, uncomplicated; Y90.0 Blood alcohol level of less than 20 mg/100 ml; Z71.6 Tobacco abuse counseling; Z87.81 Personal history of (healed) traumatic fracture; Z79.899 Other long term (current) drug therapy; Z88.0 Allergy status to penicillin
CPT/HCPCS: 36415; 70450; 80053; 80143; 80179; 80306; 80320; 81025; 82140; 82550; 83605; 83690; 84145; 84443; 84484; 84703; 85025; 87040; 87635; 93005; 94760; 96374; 99285

== ENCOUNTER 2021-01-15 21:16 | Inpatient (IN) | payer MEDICAID ==
[2021-01-15] MEDS ORDERED: ALBUTEROL HFA INHALER INHALATION PRN (21:28)
[2021-01-15] MEDS ORDERED: MAG HYDROX/AL HYDROX/SIMETH 30 ML CUP PO PRN (21:33)
[2021-01-15] MEDS ORDERED: HALOPERIDOL LACTATE 5 MG/ML 1 ML VIAL IM PRN (21:34)
[2021-01-15] MEDS ORDERED: haloperidoL 5 MG TAB PO PRN (21:34)
[2021-01-15] MEDS: CEPHALEXIN 500 MG CAP PO SCH (21:53)
[2021-01-15] MEDS: traZODone HCL 50 MG TAB PO PRN (21:53)
[2021-01-15] MEDS: hydrOXYzine HCL 25 MG TAB PO PRN (21:54)
[2021-01-16] MEDS ORDERED: NICOTINE POLACRILEX 2 MG GUM BUCCAL PRN (00:36)
[2021-01-16] MEDS: CEPHALEXIN 500 MG CAP PO SCH ×3 (08:14→20:09)
[2021-01-16] MEDS ORDERED: FLUoxetine HCL 20 MG CAP PO SCH (09:00)
[2021-01-16] MEDS ORDERED: NICOTINE 14MG/24HR PATCH TRANSDERM SCH (09:00)
[2021-01-16] MEDS ORDERED: OLANZapine 2.5 MG TAB PO SCH (09:00)
[2021-01-16] MEDS ORDERED: NON FORMULARY DRUG (Methadone Hcl [Methadone Intensol] 10 MG/ML Oral.Conc) PO SCH (09:00)
[2021-01-16] MEDS: METHADONE 10 MG TAB PO SCH (09:06)
[2021-01-16] MEDS: NICOTINE POLACRILEX 2 MG GUM BUCCAL PRN ×4 (09:43→23:40)
[2021-01-16] MEDS: ACETAMINOPHEN TAB 325 MG TAB PO PRN (10:59)
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
[2021-01-16] MEDS: hydrOXYzine HCL 25 MG TAB PO PRN ×3 (11:03→23:40)
[2021-01-16] MEDS: OLANZapine 5 MG TAB PO SCH (20:09)
[2021-01-16] MEDS: PRAZOSIN 1 MG CAP PO SCH (20:09)
[2021-01-16] MEDS: traZODone HCL 50 MG TAB PO PRN (20:11)
[2021-01-17] MEDS: METHADONE 10 MG TAB PO SCH (09:03)
[2021-01-17] MEDS: CEPHALEXIN 500 MG CAP PO SCH ×3 (09:03→20:47)
[2021-01-17] MEDS: FLUoxetine HCL 20 MG CAP PO SCH (09:03)
[2021-01-17] MEDS: OLANZapine 5 MG TAB PO SCH ×2 (09:03→20:47)
[2021-01-17] MEDS: NICOTINE POLACRILEX 2 MG GUM BUCCAL PRN ×4 (09:05→20:48)
--- NOTE | 2021-01-17 09:51 | P.PN ---
Progress Note - Text Progress Note Date: 01/17/21 Interval History: Patient was seen wandering the hallways and was directable and agreeable to speak with adjusto writer operator in the office. Patient is not reporting any suicidal or homicidal ideation, intention, and/or plan. She is not reporting any auditory or visual hallucinations. She is denying any paranoia or the other delusions. The patient has been adherent with the medications and not reporting any significant side effects at this time. The patient's primary concern today is elevated anxiety. She states that she would like some medication to at least addresses anxiety but was informed that due to her low blood pressure as well as significant substance use history, we are limited on what medications we may use for anxiety. The patient was also counseled at great length that due to her long substance abuse history, it is likely that she will feel anxious at [facility]. The patient is scheduled to go to [facility] this coming Friday. She is wondering if she can be discharged home so that she may gather her belongings prior to going. Mental Status Exam: General Appearance: Patient appears to be stated age is alert, directable, and cooperative. Patient has tattoos on her arms. She has blonde hair. Behavior: Patient is calmly seated without any agitated behavior. Psychomotor activity is slightly elevated. Speech: Patient's speech is fluent and nonpressured. Patient is hyperverbal but interruptible. Mood/Affect: Mood is improving mildly, affect is congruent and constricted. Suicidality/Homicidality: Patient denies having any suicidal or homicidal ideation intent or plan. Perceptions: Patient denies any visual hallucinations and denies any auditory hallucinations Though content/process: There is no evidence of any delusional thought content and thought process is linear and goal-directed. Strong fixation on discharge Memory and concentration: AOX3, grossly intact for the purposes of this session Judgment and insight: Improving mildly Assessment Major depressive disorder, recurrent, severe, with psychotic features Posttraumatic stress disorder Polysubstance abuse - cocaine, opiates, heroin, methamphetamines Nicotine dependence Plan: -Patient continues to meet criteria for inpatient psychiatric admission for symptom stabilization and safety. Patient has signed adult voluntary form and medication consent and was placed in patient's chart. -Medications: Continue Prozac 40 mg by mouth daily for depression/anxiety/PTSD Continue Zyprexa 5 mg by mouth twice a day for mood stabilization/psychosis Continue prazosin 1 mg by mouth at bedtime for PTSD related nightmares -we are limited on titrating this medication higher due to concerns for hypotension. -When necessary Ativan and Geodon for agitation/aggression. -NRT -nicotine patch -SW on board for discharge planning. Encouraged the patient to participate in milieu.
[2021-01-17] MEDS: hydrOXYzine HCL 25 MG TAB PO PRN ×2 (10:50→21:57)
[2021-01-17] MEDS: MAGNESIUM HYDROXIDE 2,400 MG/10 ML CUP PO PRN (11:54)
[2021-01-17] MEDS: ACETAMINOPHEN TAB 325 MG TAB PO PRN ×2 (11:55→21:58)
[2021-01-17 17:56] VITALS: TEMP 97.6
[2021-01-17] MEDS: PRAZOSIN 1 MG CAP PO SCH (20:47)
[2021-01-17] MEDS: traZODone HCL 50 MG TAB PO PRN (20:51)
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
[2021-01-18] MEDS: NICOTINE POLACRILEX 2 MG GUM BUCCAL PRN ×2 (06:50→10:47)
[2021-01-18] MEDS: CEPHALEXIN 500 MG CAP PO SCH (08:04)
[2021-01-18] MEDS: OLANZapine 5 MG TAB PO SCH (08:04)
[2021-01-18] MEDS: FLUoxetine HCL 20 MG CAP PO SCH (08:09)
[2021-01-18] MEDS: METHADONE 10 MG TAB PO SCH (08:13)
[2021-01-18] MEDS: MAGNESIUM HYDROXIDE 2,400 MG/10 ML CUP PO PRN (09:00)
[2021-01-18 09:18] VITALS: BP 119/63; PULSE 67; RESP 16
[2021-01-18] MEDS: hydrOXYzine HCL 25 MG TAB PO PRN (10:14)
[2021-01-18] MEDS ORDERED: diphenhydrAMINE 25 MG CAP PO STA (10:42)
--- NOTE | 2021-01-18 11:37 | P.DS ---
Providers Date of admission: 01/15/21 21:27 Expected date of discharge: 01/18/21 Attending physician: Junior Maldonado MD Consults: 01/15/21 21:33 Consult Physician Routine Consulting Provider: Peri Edwards Consult Reason/Comments: H&P and medical Do you want consulting provider notified?: Yes Primary care physician: Stated None - Discharge Diagnosis(es) (1) Major depressive disorder, recurrent severe without psychotic features Current Visit: Yes Status: Acute Priority: High (2) Polysubstance abuse Current Visit: Yes Status: Acute Priority: High (3) Posttraumatic stress disorder Current Visit: Yes Status: Chronic Priority: Medium (4) Nicotine dependence Current Visit: Yes Status: Chronic Priority: Medium Hospital Course: Admission HPI: Patient is an unemployed, 35-year-old female with significant history of polysubstance abuse presented to the hospital for altered mental status in the context of overdose. Patient presented to the hospital initially on 01/11/2021 for intentional overdose on Seroquel. The patient reports that she was brought in by her boyfriend while she was en route to go to [facility] for rehabilitation. The patient states that before she was going to rehab, she engaged in significant substance use including cocaine, heroin, and possibly other substances. She reports that while heading toward [facility], she began to express significant withdrawal symptoms, paranoia, psychosis, as well as increased depression. She states that these overwhelming feelings led her to overdose on Seroquel. The patient states that she was uncertain if there was any intention to take her life at that time. Prior to this hospitalization, the patient does report that she has had elevated anxiety and depression. She endorsed significant symptoms of depression including crying episodes, low energy, anhedonia, hopelessness, helplessness, and suicidal ideation. The patient further reports that she has had 5 prior attempts at suicide. She does report a significant history of hallucinations including auditory, visual, and tactile hallucinations. She states that while she was staying with her boyfriend, she is concerned that another woman was living in the house and was berating her and saying mean things to her. She states that the hallucinations become so intense to the point that she felt like an unknown force was causing her bed to shake. The patient reports that even when sober from substances, she experiences these hallucinations. Hospital course: Upon admission to the unit patient was initially presenting as remorseful for her actions and motivated for treatment. The patient was started on Prozac, prazosin, and Zyprexa for management of a depressive disorder, PTSD, and mood stabilization. The patient was adherent with her medications and tolerated them well. The patient was able to participate in group and milieu activities along with individual therapy. Over the course of the hospitalization, the patient gradually improved in regards to mood, anxiety, sleep, and became more future oriented with improved insight and judgment. The patient does have a significant history of substance abuse and was scheduled for intake with [facility] for 01/22/2021. On the day of discharge, patient is not reporting any suicidal or homicidal ideation, intention, and/or plan. She is not reporting any auditory or visualizations. Denying any paranoia or other delusions. The patient reported wanting to live for her health and for her family. The patient states that she would like to see her children in the future. She currently denies any access to firearms or other weapons. The patient does have a history of substance abuse however was counseled on abstaining from substances including alcohol and marijuana. The patient is scheduled for intake for rehabilitation next week. She was counseled on the medications and the need for regular compliance. She was also encouraged to follow-up with her outpatient appointments for mental health and for primary care. Prior to discharge, family meeting will be arranged by social sciences lecturer to answer any questions and ensure safety. The patient was evaluated by medicine prior to discharge and was cleared medically. She was prescribed cephalexin for possible wound on her hand. The patient developed a small rash and was given Benadryl. Patient was advised to hold cephalexin to be reevaluated by the physicians at rehab. Mental status exam: General Appearance: Patient appears to be stated age is alert, pleasant, and cooperative. Patient is in no acute distress and has fair hygiene and grooming . Patient has blonde hair. She has a tattoo of roses on her right arm. Behavior: Patient is calmly seated without any agitated behavior. Speech: Patient's speech is fluent and nonpressured. Mood/Affect: Patient reports their mood is "much better", affect is congruent and euthymic. Suicidality/Homicidality: Patient denies having any suicidal or homicidal ideation intent or plan. Perceptions: Patient denies any auditory or visual hallucinations. Though content/process: There is no evidence of any delusional thought content and thought process is linear and goal-directed. Patient is future oriented. Memory and concentration: AOX3, grossly intact for the purposes of this session. Can spell "WORLD" backwards correctly. Judgment and insight: Improved with guarded prognosis Impression: Major depressive disorder, recurrent, severe, with psychotic features Posttraumatic stress disorder Polysubstance abuse - cocaine, opiates, heroin, methamphetamines Nicotine dependence Plan: -Continue with discharge today as patient has improved and stabilized psychiatrically and is not currently an imminent threat to herself and/or o thers. Patient will remain at chronically elevated risk for harm to self and/or others due to her impulsivity and polysubstance abuse. -Continue medications: Prozac 40 mg by mouth daily for depression/anxiety/PTSD Zyprexa 5 mg by mouth twice a day for mood stabilization/psychosis secondary to substance abuse Prazosin 1 mg by mouth at bedtime for PTSD related nightmares Atarax 50 mg by mouth 3 times a day when necessary for anxiety -Patient was counseled on the need for medication compliance and appropriate follow-up at mental health and also primary care for medical issues. Patient verbalized understanding and agreed. -Social work to arrange for and conduct family meeting to ensure safety upon discharge and answer any questions/concerns. Social work also to arrange for patients follow up appointments for psychiatric care along with follow up with primary care provider. -Patient counseled on abstaining from recreational drugs and marijuana and alcohol. Was informed/educated on the adverse effects on their physical and mental health. Patient verbally agreed and understood. The patient is scheduled for intake at [facility] on 01/22/2021. -Patient was instructed to return to the hospital or seek immediate medical care if their psychiatric or medical symptoms do worsen or reoccur. -Psychoeducation and supportive therapy provided to patient. Risks and benefits of pharmacological treatment versus the risks and benefits of nontreatment weight and discussed. Informed consent discussion held. Common side effects of psychotropics discussed such as, but not limited to headache, GI disturbance, sexual dysfunction, movement disorders, sedation, and orthostatic hypotension. Life threatening and blackbox warnings of prescribed medications also discussed. Potential risks of operating a vehicle or heavy machinery discussed with patient at length. Advised on importance of compliance and a reliable and responsible manner. Patient advised to review FDA consumer labeling of all medications prior to taking. Patient verbalized understanding of potential risks, and agrees with current treatment plan. Patient advised to medically contact physician/emergency personnel if any acute changes in condition occur. Vital Signs Temp 97.6 F 01/17/21 17:54 Pulse 67 01/18/21 08:50 Resp 16 01/18/21 08:50 BP 119/63 01/18/21 08:50 Pulse Ox 89 L 01/18/21 00:53 Laboratory Results Free T4 0.93 ng/dL (0.78-2.19) 01/18/21 06:51 Allergies Allergy/AdvReac Type Severity Reaction Status Date / Time amoxicillin Allergy Unknown Verified 01/11/21 11:18 Penicillins Allergy Unknown Verified 01/11/21 11:18 Patient Condition at Discharge: Stable Plan - Discharge Summary Discharge Rx Participant: No New Discharge Prescriptions: New hydrOXYzine HCL [Atarax] 50 mg PO TID PRN 30 Days tab PRN Reason: Agitation Or Acute Anxiety traZODone HCL [Desyrel] 50 mg PO HS PRN 30 Days tab PRN Reason: Insomnia Cephalexin [Keflex] 500 mg PO TID 5 Days #15 cap Prazosin [Minipress] 1 mg PO HS 30 Days cap Nicotine Polacrilex [Nicorette] 4 mg BUCCAL Q4HR PRN 30 Days gum PRN Reason: Nicotine Cravings FLUoxetine HCL [PROzac] 40 mg PO DAILY 30 Days cap Albuterol Inhaler [Ventolin Hfa Inhaler] 2 puff INHALATION RT-Q6H PRN 30 Days puff PRN Reason: Shortness Of Breath OLANZapine [ZyPREXA] 5 mg PO BID 30 Days #60 tab Continue Cyclobenzaprine [Flexeril] 10 mg PO DAILY PRN PRN Reason: Muscle Spasm Methadone HCl [Methadone Intensol] 100 mg PO DAILY Discontinued traZODone HCL 50 mg PO HS polyethylene glycoL 3350 [Miralax] 17 gm PO DAILY Topiramate [Topamax] 100 mg PO HS Sertraline [Zoloft] 100 mg PO DAILY QUEtiapine [SEROquel] 100 mg PO HS Nicotine Polacrilex [Nicorette] 2 mg BUCCAL Q1H PRN PRN Reason: Smoking Cessation Magnesium Hydroxide [Milk of Magnesia Concentrate] 2,700 mg PO DAILY PRN PRN Reason: Constipation Albuterol Inhaler [Ventolin Hfa Inhaler] 2 puff INHALATION RT-Q6H PRN PRN Reason: Shortness Of Breath Acetaminophen Tab [Tylenol] 975 mg PO Q6H PRN PRN Reason: Pain hydrOXYzine HCL [Atarax] 50 mg PO QID PRN PRN Reason: Anxiety Ibuprofen [Motrin] 600 mg PO TID PRN PRN Reason: Pain Cephalexin [Keflex] 500 mg PO TID #30 cap FLUoxetine HCL [PROzac] 20 mg PO DAILY #30 cap Discharge Medication List Cyclobenzaprine [Flexeril] 10 mg PO DAILY PRN 01/11/21 [History] Methadone HCl [Methadone Intensol] 100 mg PO DAILY 01/11/21 [History] Albuterol Inhaler [Ventolin Hfa Inhaler] 2 puff INHALATION RT-Q6H PRN 30 Days puff 01/18/21 [Rx] Cephalexin [Keflex] 500 mg PO TID 5 Days #15 cap 01/18/21 [Rx] FLUoxetine HCL [PROzac] 40 mg PO DAILY 30 Days cap 01/18/21 [Rx] Nicotine Polacrilex [Nicorette] 4 mg BUCCAL Q4HR PRN 30 Days gum 01/18/21 [Rx] OLANZapine [ZyPREXA] 5 mg PO BID 30 Days #60 tab 01/18/21 [Rx] Prazosin [Minipress] 1 mg PO HS 30 Days cap 01/18/21 [Rx] hydrOXYzine HCL [Atarax] 50 mg PO TID PRN 30 Days tab 01/18/21 [Rx] traZODone HCL [Desyrel] 50 mg PO HS PRN 30 Days tab 01/18/21 [Rx] Follow up Appointment(s)/Referral(s): [facility] [Outside] - 01/22/21 12:15 pm (Intake at [facility] on 01/22/21 at 12:15 pm.) [facility] [NON-STAFF] - 1 Week Patient Instructions/Handouts: How to Stop Smoking (DC), Depression (DC) Activity/Diet/Wound Care/Special Instructions: Activity and diet as tolerated. Avoid the use of street drugs and alcohol. Take all medications as prescribed. When you are in need of refills on your medications please contact your medical provider and/or outpatient psychiatrist to have this done. Please go to scheduled outpatient appointment for aftercare treatment. If symptoms return or become worse, call the crisis line at and/or go to the nearest emergency room for evaluation. Discharge Disposition: HOME SELF-CARE
== END 2021-01-18 15:28 | disposition home or self-care (01) | DRG 885 ==
LOC: 3MHU 21:27
PROVIDERS: ADMIT Psychiatry & Neurology Psychiatry; ATTEND Psychiatry & Neurology Psychiatry
DX: F33.3 Major depressive disorder, recurrent, severe with psychotic symptoms (principal); F15.20 Other stimulant dependence, uncomplicated; F11.90 Opioid use, unspecified, uncomplicated; F14.10 Cocaine abuse, uncomplicated; T43.592A Poisoning by other antipsychotics and neuroleptics, intentional self-harm, initial encounter; F43.10 Post-traumatic stress disorder, unspecified; G89.29 Other chronic pain; M25.562 Pain in left knee; M25.561 Pain in right knee; M25.552 Pain in left hip; M25.551 Pain in right hip; R21 Rash and other nonspecific skin eruption; R45.87 Impulsiveness; F17.210 Nicotine dependence, cigarettes, uncomplicated; Z71.6 Tobacco abuse counseling; Z79.899 Other long term (current) drug therapy; Z91.5 Personal history of self-harm; Z56.0 Unemployment, unspecified; Z91.410 Personal history of adult physical and sexual abuse; Z88.0 Allergy status to penicillin; Z81.8 Family history of other mental and behavioral disorders; Z81.4 Family history of other substance abuse and dependence
CPT/HCPCS: 84439; 84480

== ENCOUNTER → 2021-07-18 | Outpatient (CLI) | payer OTHER | END | disposition home or self-care (01) | LOC: LABWHC1 13:34 | PROVIDERS: ATTEND General Practice | DX: Z79.891 Long term (current) use of opiate analgesic (principal) | CPT/HCPCS: 36415; 84702 ==